=== PATIENT | female | born 1980 | race Caucasian/White ===

== ENCOUNTER 2020-07-23 02:50 | Outpatient (CLI) | payer BC, SELFPAY ==
[2020-07-23 19:46] LABS: SARS-CoV-2 RNA PCR Negative
== END 2020-07-23 02:51 | disposition home or self-care (01) ==
LOC: ANHCOVIDDT 02:51
PROVIDERS: Visit Provider Obstetrics & Gynecology
DX: Z01.812 Encounter for preprocedural laboratory examination (principal); Z20.828 Contact with and (suspected) exposure to other viral communicable diseases
CPT/HCPCS: 87635; C9803; U0003

== ENCOUNTER 2020-07-26 04:20 | Day surgery (SDC) | payer BC, SELFPAY ==
[2020-07-23 09:26] VITALS: BMI 32.6
[2020-07-26 11:15] VITALS: BP 122/76; PULSE 84; RESP 16; TEMP 36.5; O2SAT 100
[2020-07-26] MEDS: ACETAMINOPHEN 500 MG TABLET 1000 MG PO (12:11)
[2020-07-26] MEDS: LACTATED RINGERS 1,000 ML 30 ML IV CONT (12:15)
--- NOTE | 2020-07-26 12:54 | WPDANESEPPF ---
Anes - Initial Pre Proc Eval Procedure: Operation Date: 07/26/20 13:00 Proposed Procedures p Hysteroscopy, Alessandra Endometrial Ablation - Gina Parsons MD Date/Time: 07/26/20 12:54 Surgeon: Gina Parsons MD Pre Op Diagnosis: Abnormal Uterine Bleeding Patient Data Age: 39 Gender: F Height: 1.65 m Weight: 90.8 kg Last Vital Signs Temp 36.5 C 07/26/20 11:15 Pulse 84 07/26/20 11:15 Resp 16 07/26/20 11:15 BP 122/76 07/26/20 11:15 Pulse Ox 100 07/26/20 11:15 Allergies Allergy/AdvReac Type Severity Reaction Status Date / Time codeine Allergy Mild Itching Verified 07/26/20 12:13 Home Medications Medication Instructions Recorded Confirmed Type albuterol sulfate [Ventolin HFA] 1 inh INHALATION Q6-8H PRN 07/23/20 07/26/20 History fluticasone propion-salmeterol 1 inh INHALATION BID 07/23/20 07/26/20 History [Wixela Inhub] Patient hx anesthesia problems: none Family hx anesthesia problems: none [facility] Past Medical History Medical History (Updated 07/26/20 @ 12:54 by Camilo An DO) Asthma Social History Social History Smoking status: Never smoker Alcohol intake: current Alcohol use details: 1-2/MONTH Substance use: never Living arrangements: with family Additional living arrangements comments: AND CHILDREN Spiritual care concerns: No Anes - Eval Final PreProcedure Day of Procedure 07/26/20 12:54 Patient weight: obese Heart: regular rate and rhythm Lungs: clear to auscultation and normal air movement Airway: Mallampati scale class II Neurological: alert and oriented Last oral intake: >/= 8 hours ASA classification: II Emergent: no Anesthetic plan: proceed Anesthesia type and monitoring: general GIVS and standard monitoring Informed Consent: The patient's anesthetic plan and its attendant risks and benefits were discussed with the patient/family/POA. Questions were solicited and answers provided to the satisfaction of the patient/family/POA.
--- NOTE | 2020-07-26 12:56 | WPDHPUPDATE1 ---
History and Physical Update Update Date/Time: 07/26/20 12:56 History and Physical has been reviewed, including an updated exam of the patient. There are NO changes in the patient's condition. Risks, benefits, and alternatives have been discussed and questions answered. Patient agrees to proceed with procedure.
[2020-07-26] MEDS: KETOROLAC 30 MG/ML VIAL (*BKC) IV PUSH (13:56)
[2020-07-26 14:01] VITALS: BP 112/72; PULSE 76; RESP 16; O2SAT 100
[2020-07-26] MEDS: LIDOCAINE HCL 1% LOCAL INJ 10 ML VIAL 50 ML INFILTRATE (14:04)
--- NOTE | 2020-07-26 14:06 | P.OP_ITS ---
Procedure Note - Detailed Date of procedure: 07/26/20 Pre-op diagnosis: Abnormal Uterine Bleeding Procedure performed: hysteroscopy D&C with endometrial ablation with Alessandra Description of procedure: The patient was taken to the operating room where MAC was found to be adequate. She was then prepared and draped in the dorsal lithotomy position in [facility]. A speculum was used to visualize the cervix and single toothed tenaculum placed on the anterior lip. 8cc of 1% plain was used to inject the cervix at 2,5, 7, 10 oclock. Then the uterus sounded to 10cm, uterine length 4cm, cervix length 6cm. Hysteroscope inserted and 0.9% normal saline used for distension. The uterus was with fluffy white endometrium. No polyps. Bilateral tubal ostia visualized. Sharp currettage was used when the hysteroscope removed. Then Alessandra prepped and inserted without problem. Cavitary assessment passed and ablation proceeded without compliation. The Alessandra removed and the hysteroscope reinserted. The cavity appeared well ablated with good result. Images taken and camera removed. Tenaculum removed and sites were hemostatic. The patient tolerated the procedure well. All counts correct. Anesthesia: GLMA Surgeon: Gina Parsons MD Estimated blood loss (mL): 10 Drains: No Packing: No Pathology: yes (Endometrial currettings) Complications: None Condition: stable Disposition: same day Findings: fluffy white endometrium. No masses/or polyps present
[2020-07-26 14:30] VITALS: BP 112/72; PULSE 76; RESP 16; O2SAT 96
== END 2020-07-26 14:45 | disposition home or self-care (01) ==
PROVIDERS: Visit Provider Obstetrics & Gynecology
PROC: 0U5B8ZZ Destruction of Endometrium, Via Natural or Artificial Opening Endoscopic (ICD-10-PCS; CPT 58563; principal; 2020-07-26 13:00)
DX: N93.9 Abnormal uterine and vaginal bleeding, unspecified (principal); J45.909 Unspecified asthma, uncomplicated; E66.9 Obesity, unspecified; Z68.33 Body mass index [BMI] 33.0-33.9, adult
CPT/HCPCS: 58563; 88305; A9270; J1100; J1885; J2250; J2405; J2704; J3010; J7030; J7120